=== PATIENT | female | born 1935 | race Two or more races ===

== ENCOUNTER 2021-08-02 10:48 | Inpatient (IN) | payer OTHER ==
[~2021-08-02] VITALS: Ht 165.1 cm; Wt 72.8 kg
[2021-08-02] MEDS ORDERED: methylPREDNISolone SOD SUCC 125 MG/2 ML VL IV ONE (11:30)
[2021-08-02 12:44] LABS: Basophils # (auto) 0 10 ^3/uL (0-0.2); Basophils % (auto) 0.2 % (0.0-2.0); Eosinophils # (auto) 0 10 ^3/uL (0-0.8); Hematocrit 34.9 % (36.0-46.0); Hemoglobin 11.8 g/dL (12.2-16.2); Lymphocytes # (auto) 0.9 10 ^3/uL (0.4-5.4); Lymphocytes % (auto) 12.1 % (10.0-50.0); Mean Corpuscular Hemoglobin 33.3 pg (28.0-32.0); Mean Corpuscular Hgb Conc. 33.9 g/dL (32.0-36.0); Mean Corpuscular Volume 98.2 fL (80.0-100.0); Monocytes # (auto) 0.2 10 ^3/uL (0-1.3); Monocytes % (auto) 2.7 % (0.0-12.0); Neutrophils # (auto) 6.1 10 ^3/uL (1.6-8.6); Red Blood Cells 3.55 10^6/uL (4.0-5.20); Red Cell Distribution Width 15.8 % (11.8-14.3); White Blood Cell 7.1 10^3/uL (4.4-10.8)
[2021-08-02 12:52] LABS: Albumin 2.6 g/dL (3.4-5.0); Calcium 8.2 mg/dL (8.5-10.1); Potassium 3.4 mmol/L (3.5-5.1)
[2021-08-02 13:01] LABS: BUN/Creatinine Ratio 22.4; Bilirubin, Total 0.5 mg/dL (0.2-1.0); CRP High Sensitivity 18.6 mg/dL (< 0.3); Magnesium 2.3 mg/dL (1.6-2.6)
[2021-08-02] MEDS ORDERED: NITROGLYCERIN 0.4 MG SL TAB SL PRN (13:45)
[2021-08-02] MEDS ORDERED: MORPHINE SULFATE INJECTION 2 MG/ML SYRG IV PRN (13:45)
[2021-08-02] MEDS ORDERED: ASPI-498 PO (16:38)
[2021-08-02] MEDS ORDERED: CALC600T65 PO (16:38)
[2021-08-02] MEDS ORDERED: LEVAAER IN (16:38)
[2021-08-02] MEDS ORDERED: OMEG100078 PO (16:38)
[2021-08-02] MEDS ORDERED: METO-289 PO (16:38)
[2021-08-02] MEDS ORDERED: GLIP-110 PO (16:38)
[2021-08-02] MEDS ORDERED: ALLO100T PO (16:38)
[2021-08-02] MEDS ORDERED: POTA10TA32 PO (16:38)
[2021-08-02] MEDS ORDERED: MIN25T PO (16:38)
[2021-08-02] MEDS ORDERED: PANT40TA2 PO (16:38)
[2021-08-02] MEDS ORDERED: FURO40TA4 PO (16:38)
[2021-08-02] MEDS ORDERED: INSU100I4 SC (16:38)
[2021-08-02] MEDS ORDERED: ISOS1TAB28 PO (16:38)
[2021-08-02] MEDS ORDERED: METO2.5T PO (16:38)
[2021-08-02] MEDS ORDERED: INSU1INJ5 SC (16:38)
[2021-08-02] MEDS ORDERED: ROSU20TA14 PO (16:38)
[2021-08-02] MEDS ORDERED: POLYDRO2 EACHEYE (16:40)
[2021-08-02 19:03] LABS: Urine Bacteria FEW /hpf (None Seen); Urine Blood TRACE /uL (Negative); Urine WBC 8 /hpf (0 - 5)
[2021-08-02] MEDS ORDERED: hydrALAZINE HCL 20 MG/ML VL IV PRN (19:15)
[2021-08-02] MEDS ORDERED: ALBUMIN 25% 100 ML IV ONE (19:15)
[2021-08-02] MEDS ORDERED: FAMOTIDINE (10MG/ML) 2ML VL IV ONE (19:15)
[2021-08-02] MEDS ORDERED: REMDESIVIR PER PHARMACY 0 ML IV SCH (19:15)
[2021-08-02] MEDS ORDERED: DEXTROSE (50%) 50ML SYRG IV PRN (19:15)
[2021-08-02] MEDS ORDERED: POTASSIUM CHL 20 Meq TABLET PO ONE (19:15)
[2021-08-02] MEDS ORDERED: ACETAMINOPHEN 500 MG TAB PO PRN (19:15)
[2021-08-02] MEDS ORDERED: CALCIUM W/VIT D (600MG/400IU) TAB PO ONE (19:30)
[2021-08-02] MEDS: ZINC SULFATE 220mg CAP or TAB PO SCH (19:59)
[2021-08-02] MEDS: ASCORBIC ACID 1,000 MG TAB PO SCH (19:59)
[2021-08-02] MEDS: CHOLECALCIFEROL (VITD3) 2,000 UNIT CAP/TAB PO SCH (19:59)
[2021-08-02] MEDS: FUROSEMIDE 20 MG/2 ML VIAL IV SCH (19:59)
[2021-08-02] MEDS ORDERED: REMDESIVIR 200 MG in NS 210ml LOADING DOSE ADULT IV ONE (20:00)
[2021-08-02 20:33] LABS: Thyroid Stimulating Hormone 2.46 uIU/mL (0.358-3.74)
[2021-08-02] MEDS: BUDESONIDE (INHALATION) 180 MCG IH IN SCH (22:00)
[2021-08-02] MEDS: ALBUTEROL SULF HFA 90MCG INH 200DOSE IN PRN (23:05)
[2021-08-02] MEDS: ACCU-CHEK COMFORT CURVE STRIP VI SCH (23:28)
[2021-08-02] MEDS: ALBUMIN 25% 100 ML IV SCH (23:35)
[2021-08-02] MEDS: ATORVASTATIN 20 MG TAB PO SCH (23:36)
[2021-08-02] MEDS: POTASSIUM CHL 20 Meq TABLET PO SCH (23:36)
[2021-08-02] MEDS: ENOXAPARIN SOD 40 MG/0.4 ML SYRINGE SC SCH (23:36)
[2021-08-02] MEDS: DOXYCYCLINE 100MG/250ML 250 ML IV SCH (23:41)
[2021-08-03] MEDS: InsuLIN REG 1unit/0.01ml Soln (100units/ml) SC SCH ×5 (00:17→22:41)
[2021-08-03 01:13] VITALS: BP 121/86
[2021-08-03] MEDS: ALBUMIN 25% 100 ML IV SCH ×2 (03:22→12:21)
[2021-08-03] MEDS: FUROSEMIDE 20 MG/2 ML VIAL IV SCH ×2 (06:22→17:31)
[2021-08-03] MEDS: ACCU-CHEK COMFORT CURVE STRIP VI SCH ×4 (06:41→23:09)
[2021-08-03] MEDS: CALCIUM W/VIT D (600MG/400IU) TAB PO SCH ×2 (08:25→17:31)
[2021-08-03 09:11] LABS: Basophils # (auto) 0 10 ^3/uL (0-0.2); Basophils % (auto) 0.3 % (0.0-2.0); Eosinophils # (auto) 0 10 ^3/uL (0-0.8); Hematocrit 35.4 % (36.0-46.0); Hemoglobin 11.9 g/dL (12.2-16.2); Lymphocytes # (auto) 0.6 10 ^3/uL (0.4-5.4); Lymphocytes % (auto) 8.1 % (10.0-50.0); Mean Corpuscular Hemoglobin 33.1 pg (28.0-32.0); Mean Corpuscular Hgb Conc. 33.6 g/dL (32.0-36.0); Mean Corpuscular Volume 98.5 fL (80.0-100.0); Monocytes # (auto) 0.2 10 ^3/uL (0-1.3); Monocytes % (auto) 3.1 % (0.0-12.0); Neutrophils # (auto) 7.1 10 ^3/uL (1.6-8.6); Neutrophils % (auto) 88.5 % (37.0-80.0); Nucleated Red Blood Cells % 0.1 %; Red Blood Cells 3.59 10^6/uL (4.0-5.20); Red Cell Distribution Width 15.7 % (11.8-14.3)
[2021-08-03 09:29] LABS: Potassium 3.8 mmol/L (3.5-5.1)
[2021-08-03 09:37] LABS: INR 1.06 (0.9-1.15); Partial Thromboplastin Time 46.3 sec (23.6-33.0)
[2021-08-03 09:39] LABS: Albumin 3.2 g/dL (3.4-5.0); BUN/Creatinine Ratio 28.9; Bilirubin, Total 0.5 mg/dL (0.2-1.0); Calcium 8.9 mg/dL (8.5-10.1); Magnesium 2.8 mg/dL (1.6-2.6); Phosphorus 3.2 mg/dL (2.5-4.90); Total Protein 7.6 g/dL (6.4-8.2); Uric Acid 5.1 mg/dL (2.6-6.0)
[2021-08-03] MEDS: ISOSORBIDE MONONITRATE ER 60 MG TAB PO SCH (10:00)
[2021-08-03] MEDS: BUDESONIDE (INHALATION) 180 MCG IH IN SCH ×2 (10:47→21:00)
[2021-08-03] MEDS: ALBUTEROL SULF HFA 90MCG INH 200DOSE IN PRN ×2 (10:47→21:00)
[2021-08-03] MEDS: DexAMETHasone SOD PHOS 10MG/1ML VIAL INJ IV SCH (10:50)
[2021-08-03] MEDS: DOXYCYCLINE 100MG/250ML 250 ML IV SCH ×2 (10:50→23:09)
[2021-08-03] MEDS: FAMOTIDINE (10MG/ML) 2ML VL IV SCH (10:50)
[2021-08-03] MEDS: ASPirin 81 mg TAB PO SCH (10:51)
[2021-08-03] MEDS: ZINC SULFATE 220mg CAP or TAB PO SCH (10:51)
[2021-08-03] MEDS: POTASSIUM CHL 20 Meq TABLET PO SCH ×2 (10:52→23:09)
[2021-08-03] MEDS: ASCORBIC ACID 1,000 MG TAB PO SCH (10:53)
[2021-08-03] MEDS: CHOLECALCIFEROL (VITD3) 2,000 UNIT CAP/TAB PO SCH (10:53)
[2021-08-03] MEDS: IVERMECTIN 3 MG TAB PO SCH (10:53)
[2021-08-03] MEDS: ENOXAPARIN SOD 40 MG/0.4 ML SYRINGE SC SCH (10:54)
[2021-08-03] MEDS: ALLOPURINOL 100 MG TAB PO SCH (10:54)
[2021-08-03] MEDS ORDERED: cefTRIAXone 1GM/50ML D5W 50 ML IV ONE (13:00)
[2021-08-03] MEDS: REMDESIVIR 100mg 100 MG in SODIUM CHL 0.9% 230 ML IV SCH (15:11)
[2021-08-03 20:20] VITALS: BP 127/65
[2021-08-03 22:00] VITALS: BP 127/65
[2021-08-03] MEDS: ATORVASTATIN 20 MG TAB PO SCH (23:08)
[2021-08-04 05:30] VITALS: BP 131/70
[2021-08-04] MEDS: ACCU-CHEK COMFORT CURVE STRIP VI SCH ×4 (06:33→21:51)
[2021-08-04] MEDS: FUROSEMIDE 20 MG/2 ML VIAL IV SCH ×2 (06:33→17:46)
[2021-08-04] MEDS: InsuLIN REG 1unit/0.01ml Soln (100units/ml) SC SCH ×4 (06:34→21:44)
[2021-08-04 07:39] LABS: Potassium 4.2 mmol/L (3.5-5.1)
[2021-08-04 07:54] LABS: Albumin 3.2 g/dL (3.4-5.0); BUN/Creatinine Ratio 37.7; Bilirubin, Total 0.4 mg/dL (0.2-1.0); Calcium 8.7 mg/dL (8.5-10.1); Total Protein 6.5 g/dL (6.4-8.2)
[2021-08-04 08:00] VITALS: BP 139/63
[2021-08-04] MEDS: BUDESONIDE (INHALATION) 180 MCG IH IN SCH ×2 (08:06→22:10)
[2021-08-04] MEDS: ALBUTEROL SULF HFA 90MCG INH 200DOSE IN PRN ×2 (08:06→22:10)
[2021-08-04 09:00] VITALS: BP 139/63
[2021-08-04] MEDS: CALCIUM W/VIT D (600MG/400IU) TAB PO SCH ×2 (09:44→17:46)
[2021-08-04] MEDS: cefTRIAXone 1GM/50ML D5W 50 ML IV SCH (09:45)
[2021-08-04] MEDS: DexAMETHasone SOD PHOS 10MG/1ML VIAL INJ IV SCH (09:45)
[2021-08-04] MEDS: ZINC SULFATE 220mg CAP or TAB PO SCH (09:45)
[2021-08-04] MEDS: ASPirin 81 mg TAB PO SCH (09:45)
[2021-08-04] MEDS: FAMOTIDINE (10MG/ML) 2ML VL IV SCH (09:45)
[2021-08-04] MEDS: POTASSIUM CHL 20 Meq TABLET PO SCH ×2 (09:46→21:52)
[2021-08-04] MEDS: ISOSORBIDE MONONITRATE ER 60 MG TAB PO SCH (09:46)
[2021-08-04] MEDS: CHOLECALCIFEROL (VITD3) 2,000 UNIT CAP/TAB PO SCH (09:47)
[2021-08-04] MEDS: ALLOPURINOL 100 MG TAB PO SCH (09:47)
[2021-08-04] MEDS: IVERMECTIN 3 MG TAB PO SCH (09:47)
[2021-08-04] MEDS ORDERED: ENOXAPARIN SOD 40 MG/0.4 ML SYRINGE SC SCH (10:00)
[2021-08-04] MEDS: DOXYCYCLINE 100MG/250ML 250 ML IV SCH ×2 (11:37→21:52)
[2021-08-04] MEDS ORDERED: POTASSIUM CHL 20MEQ/100ML 0 ML IV ONE (12:34)
[2021-08-04 13:00] VITALS: BP 135/72
[2021-08-04] MEDS: REMDESIVIR 100mg 100 MG in SODIUM CHL 0.9% 230 ML IV SCH (15:17)
[2021-08-04 17:00] VITALS: BP 121/65
[2021-08-04] MEDS: ENOXAPARIN SOD 40 MG/0.4 ML SYRINGE SC SCH (21:51)
[2021-08-04] MEDS: ATORVASTATIN 20 MG TAB PO SCH (21:52)
[2021-08-04 22:00] VITALS: BP 128/70
[2021-08-05] VITALS (7 sets, daily range): BP systolic 124–160; BP diastolic 49–75
[2021-08-05] MEDS: FUROSEMIDE 20 MG/2 ML VIAL IV SCH ×2 (06:13→17:43)
[2021-08-05] MEDS: ACCU-CHEK COMFORT CURVE STRIP VI SCH ×4 (06:13→21:35)
[2021-08-05] MEDS: InsuLIN REG 1unit/0.01ml Soln (100units/ml) SC SCH ×4 (06:20→21:31)
[2021-08-05 06:53] LABS: Albumin 2.8 g/dL (3.4-5.0); Calcium 8.9 mg/dL (8.5-10.1); Potassium 4.5 mmol/L (3.5-5.1)
[2021-08-05 06:55] LABS: BUN/Creatinine Ratio 38.9
[2021-08-05 06:58] LABS: Bilirubin, Total 0.3 mg/dL (0.2-1.0); Total Protein 5.9 g/dL (6.4-8.2)
[2021-08-05] MEDS: ALBUTEROL SULF HFA 90MCG INH 200DOSE IN PRN ×2 (07:13→21:47)
[2021-08-05] MEDS: BUDESONIDE (INHALATION) 180 MCG IH IN SCH ×2 (07:13→21:47)
[2021-08-05] MEDS: cefTRIAXone 1GM/50ML D5W 50 ML IV SCH (08:40)
[2021-08-05] MEDS: CALCIUM W/VIT D (600MG/400IU) TAB PO SCH ×2 (08:40→17:44)
[2021-08-05] MEDS: DexAMETHasone SOD PHOS 10MG/1ML VIAL INJ IV SCH (08:51)
[2021-08-05] MEDS: POTASSIUM CHL 20 Meq TABLET PO SCH ×2 (08:52→21:35)
[2021-08-05] MEDS: ASPirin 81 mg TAB PO SCH (08:52)
[2021-08-05] MEDS: FAMOTIDINE (10MG/ML) 2ML VL IV SCH (08:52)
[2021-08-05] MEDS: ENOXAPARIN SOD 40 MG/0.4 ML SYRINGE SC SCH ×2 (08:53→21:35)
[2021-08-05] MEDS: ALLOPURINOL 100 MG TAB PO SCH (08:53)
[2021-08-05] MEDS: CHOLECALCIFEROL (VITD3) 2,000 UNIT CAP/TAB PO SCH (08:53)
[2021-08-05] MEDS: DOXYCYCLINE 100MG/250ML 250 ML IV SCH (09:42)
[2021-08-05] MEDS: ISOSORBIDE MONONITRATE ER 60 MG TAB PO SCH (09:42)
[2021-08-05] MEDS ORDERED: amLODIPine BESYLATE 5 MG TAB PO ONE (12:45)
[2021-08-05] MEDS: REMDESIVIR 100mg 100 MG in SODIUM CHL 0.9% 230 ML IV SCH (15:51)
[2021-08-05] MEDS: PROMETHAZINE W/CODEINE 5 ML ORAL SYRUP PO PRN (16:15)
[2021-08-05] MEDS: INSULIN LANTUS (GLARGINE) 1 /0.01ml (100units/ml) SC SCH (21:33)
[2021-08-05] MEDS: ATORVASTATIN 20 MG TAB PO SCH (21:35)
[2021-08-05] MEDS: DOXYCYCLINE 100 MG TAB/CAP PO SCH (21:35)
[2021-08-06] MEDS: PROMETHAZINE W/CODEINE 5 ML ORAL SYRUP PO PRN ×4 (02:03→23:28)
[2021-08-06 05:00] VITALS: BP_SYST 154; BP_SYST 161; BP_DIAS 78; BP_DIAS 80
[2021-08-06] MEDS: ACCU-CHEK COMFORT CURVE STRIP VI SCH ×4 (06:14→22:23)
[2021-08-06] MEDS: FUROSEMIDE 20 MG/2 ML VIAL IV SCH ×2 (06:14→17:07)
[2021-08-06] MEDS: InsuLIN REG 1unit/0.01ml Soln (100units/ml) SC SCH ×4 (06:20→22:25)
[2021-08-06 07:02] LABS: Basophils # (auto) 0 10 ^3/uL (0-0.2); Basophils % (auto) 0.4 % (0.0-2.0); Eosinophils # (auto) 0 10 ^3/uL (0-0.8); Hematocrit 35.6 % (36.0-46.0); Hemoglobin 12.5 g/dL (12.2-16.2); Lymphocytes # (auto) 0.9 10 ^3/uL (0.4-5.4); Lymphocytes % (auto) 19.2 % (10.0-50.0); Mean Corpuscular Hemoglobin 34.2 pg (28.0-32.0); Mean Corpuscular Volume 97.7 fL (80.0-100.0); Monocytes # (auto) 0.4 10 ^3/uL (0-1.3); Monocytes % (auto) 8.9 % (0.0-12.0); Neutrophils # (auto) 3.5 10 ^3/uL (1.6-8.6); Neutrophils % (auto) 71.5 % (37.0-80.0); Nucleated Red Blood Cells % 0.1 %; Red Blood Cells 3.64 10^6/uL (4.0-5.20); Red Cell Distribution Width 15.4 % (11.8-14.3); White Blood Cell 4.9 10^3/uL (4.4-10.8)
[2021-08-06 07:20] LABS: Calcium 9.2 mg/dL (8.5-10.1); Potassium 4.6 mmol/L (3.5-5.1)
[2021-08-06 07:27] LABS: BUN/Creatinine Ratio 41.5; Bilirubin, Total 0.4 mg/dL (0.2-1.0); Total Protein 6.4 g/dL (6.4-8.2)
[2021-08-06] MEDS: BUDESONIDE (INHALATION) 180 MCG IH IN SCH ×2 (07:51→19:55)
[2021-08-06] MEDS: ALBUTEROL SULF HFA 90MCG INH 200DOSE IN PRN ×2 (07:51→19:56)
[2021-08-06 09:00] VITALS: BP 140/69
[2021-08-06] MEDS: cefTRIAXone 1GM/50ML D5W 50 ML IV SCH (10:48)
[2021-08-06] MEDS: ENOXAPARIN SOD 40 MG/0.4 ML SYRINGE SC SCH ×2 (10:48→22:23)
[2021-08-06] MEDS: POTASSIUM CHL 20 Meq TABLET PO SCH ×2 (10:49→22:25)
[2021-08-06] MEDS: ALLOPURINOL 100 MG TAB PO SCH (10:49)
[2021-08-06] MEDS: ASPirin 81 mg TAB PO SCH (10:49)
[2021-08-06] MEDS: CHOLECALCIFEROL (VITD3) 2,000 UNIT CAP/TAB PO SCH (10:50)
[2021-08-06] MEDS: ISOSORBIDE MONONITRATE ER 60 MG TAB PO SCH (10:50)
[2021-08-06] MEDS: DOXYCYCLINE 100 MG TAB/CAP PO SCH ×2 (10:50→22:25)
[2021-08-06] MEDS: amLODIPine BESYLATE 5 MG TAB PO SCH (10:51)
[2021-08-06] MEDS: FAMOTIDINE (10MG/ML) 2ML VL IV SCH (10:52)
[2021-08-06] MEDS: DexAMETHasone SOD PHOS 10MG/1ML VIAL INJ IV SCH (10:53)
[2021-08-06] MEDS: CALCIUM W/VIT D (600MG/400IU) TAB PO SCH ×2 (11:07→17:07)
[2021-08-06 13:00] VITALS: BP 122/65
[2021-08-06] MEDS: REMDESIVIR 100mg 100 MG in SODIUM CHL 0.9% 230 ML IV SCH (15:08)
[2021-08-06 17:00] VITALS: BP 127/70
[2021-08-06 22:00] VITALS: BP 123/67
[2021-08-06] MEDS: INSULIN LANTUS (GLARGINE) 1 /0.01ml (100units/ml) SC SCH (22:24)
[2021-08-06] MEDS: ATORVASTATIN 20 MG TAB PO SCH (22:25)
[2021-08-07 05:00] VITALS: BP 152/73
[2021-08-07] MEDS: FUROSEMIDE 20 MG/2 ML VIAL IV SCH ×2 (05:48→17:35)
[2021-08-07] MEDS: ACCU-CHEK COMFORT CURVE STRIP VI SCH ×4 (06:13→21:28)
[2021-08-07] MEDS: InsuLIN REG 1unit/0.01ml Soln (100units/ml) SC SCH ×4 (06:14→21:38)
[2021-08-07] MEDS: ALBUTEROL SULF HFA 90MCG INH 200DOSE IN PRN (08:03)
[2021-08-07] MEDS: BUDESONIDE (INHALATION) 180 MCG IH IN SCH ×2 (08:04→21:27)
[2021-08-07] MEDS: CALCIUM W/VIT D (600MG/400IU) TAB PO SCH ×2 (08:30→17:35)
[2021-08-07] MEDS: cefTRIAXone 1GM/50ML D5W 50 ML IV SCH (08:30)
[2021-08-07 09:00] VITALS: BP 141/71
[2021-08-07] MEDS: FAMOTIDINE (10MG/ML) 2ML VL IV SCH (09:35)
[2021-08-07] MEDS: DexAMETHasone SOD PHOS 10MG/1ML VIAL INJ IV SCH (09:35)
[2021-08-07] MEDS: amLODIPine BESYLATE 5 MG TAB PO SCH (09:36)
[2021-08-07] MEDS: POTASSIUM CHL 20 Meq TABLET PO SCH ×2 (09:36→21:27)
[2021-08-07] MEDS: ENOXAPARIN SOD 40 MG/0.4 ML SYRINGE SC SCH ×2 (09:36→21:28)
[2021-08-07] MEDS: ASPirin 81 mg TAB PO SCH (09:37)
[2021-08-07] MEDS: DOXYCYCLINE 100 MG TAB/CAP PO SCH ×2 (09:37→21:27)
[2021-08-07] MEDS: CHOLECALCIFEROL (VITD3) 2,000 UNIT CAP/TAB PO SCH (09:37)
[2021-08-07] MEDS: ALLOPURINOL 100 MG TAB PO SCH (09:37)
[2021-08-07] MEDS: ISOSORBIDE MONONITRATE ER 60 MG TAB PO SCH (09:37)
[2021-08-07 13:00] VITALS: BP 131/70
[2021-08-07] MEDS: PROMETHAZINE W/CODEINE 5 ML ORAL SYRUP PO PRN (15:52)
[2021-08-07 17:00] VITALS: BP 121/62
[2021-08-07] MEDS: ATORVASTATIN 20 MG TAB PO SCH (21:27)
[2021-08-07] MEDS: INSULIN LANTUS (GLARGINE) 1 /0.01ml (100units/ml) SC SCH (21:30)
[2021-08-07 21:58] VITALS: BP 112/60
[2021-08-08 05:01] VITALS: BP 126/72
[2021-08-08] MEDS: ALBUTEROL SULF HFA 90MCG INH 200DOSE IN PRN ×2 (05:56→20:09)
[2021-08-08] MEDS: BUDESONIDE (INHALATION) 180 MCG IH IN SCH ×2 (05:56→20:09)
[2021-08-08] MEDS: ACCU-CHEK COMFORT CURVE STRIP VI SCH ×4 (07:37→21:00)
[2021-08-08] MEDS: FUROSEMIDE 20 MG/2 ML VIAL IV SCH (07:37)
[2021-08-08] MEDS: InsuLIN REG 1unit/0.01ml Soln (100units/ml) SC SCH ×4 (07:43→21:08)
[2021-08-08 08:00] VITALS: BP_SYST 114; BP_SYST 131; BP_DIAS 71; BP_DIAS 72
[2021-08-08] MEDS: ENOXAPARIN SOD 40 MG/0.4 ML SYRINGE SC SCH ×2 (09:48→20:59)
[2021-08-08] MEDS: FAMOTIDINE (10MG/ML) 2ML VL IV SCH (09:48)
[2021-08-08] MEDS: cefTRIAXone 1GM/50ML D5W 50 ML IV SCH (09:48)
[2021-08-08] MEDS: DexAMETHasone SOD PHOS 10MG/1ML VIAL INJ IV SCH (09:48)
[2021-08-08] MEDS: amLODIPine BESYLATE 5 MG TAB PO SCH (09:49)
[2021-08-08] MEDS: ASPirin 81 mg TAB PO SCH (09:49)
[2021-08-08] MEDS: ISOSORBIDE MONONITRATE ER 60 MG TAB PO SCH (09:49)
[2021-08-08] MEDS: DOXYCYCLINE 100 MG TAB/CAP PO SCH ×2 (09:49→20:59)
[2021-08-08] MEDS: POTASSIUM CHL 20 Meq TABLET PO SCH (09:49)
[2021-08-08] MEDS: CHOLECALCIFEROL (VITD3) 2,000 UNIT CAP/TAB PO SCH (09:49)
[2021-08-08] MEDS: ALLOPURINOL 100 MG TAB PO SCH (09:49)
[2021-08-08] MEDS: CALCIUM W/VIT D (600MG/400IU) TAB PO SCH ×2 (10:50→17:35)
[2021-08-08 12:12] VITALS: BP 115/51
[2021-08-08 17:05] VITALS: BP 123/67
[2021-08-08] MEDS: ATORVASTATIN 20 MG TAB PO SCH (20:59)
[2021-08-08] MEDS: INSULIN LANTUS (GLARGINE) 1 /0.01ml (100units/ml) SC SCH (21:04)
[2021-08-08 22:00] VITALS: BP 122/59
[2021-08-09 02:11] VITALS: BP 123/67
[2021-08-09 05:00] VITALS: BP 140/66
[2021-08-09] MEDS: BUDESONIDE (INHALATION) 180 MCG IH IN SCH ×2 (06:57→22:18)
[2021-08-09] MEDS: ALBUTEROL SULF HFA 90MCG INH 200DOSE IN PRN ×2 (06:57→22:18)
[2021-08-09] MEDS: ACCU-CHEK COMFORT CURVE STRIP VI SCH ×4 (07:15→22:22)
[2021-08-09] MEDS: InsuLIN REG 1unit/0.01ml Soln (100units/ml) SC SCH ×4 (07:17→22:25)
[2021-08-09 07:59] LABS: Basophils # (auto) 0 10 ^3/uL (0-0.2); Basophils % (auto) 0.1 % (0.0-2.0); Eosinophils # (auto) 0 10 ^3/uL (0-0.8); Hematocrit 38.5 % (36.0-46.0); Hemoglobin 12.8 g/dL (12.2-16.2); Lymphocytes # (auto) 1.1 10 ^3/uL (0.4-5.4); Lymphocytes % (auto) 19.5 % (10.0-50.0); Mean Corpuscular Hemoglobin 33.5 pg (28.0-32.0); Mean Corpuscular Hgb Conc. 33.4 g/dL (32.0-36.0); Mean Corpuscular Volume 100.2 fL (80.0-100.0); Monocytes # (auto) 0.4 10 ^3/uL (0-1.3); Monocytes % (auto) 7.7 % (0.0-12.0); Neutrophils # (auto) 4.1 10 ^3/uL (1.6-8.6); Neutrophils % (auto) 72.7 % (37.0-80.0); Red Blood Cells 3.84 10^6/uL (4.0-5.20); Red Cell Distribution Width 15.8 % (11.8-14.3); White Blood Cell 5.6 10^3/uL (4.4-10.8)
[2021-08-09 08:11] LABS: Calcium 9.7 mg/dL (8.5-10.1); Potassium 4.2 mmol/L (3.5-5.1)
[2021-08-09 08:17] LABS: BUN/Creatinine Ratio 40.5; Bilirubin, Total 0.4 mg/dL (0.2-1.0); Total Protein 6.4 g/dL (6.4-8.2)
[2021-08-09 09:00] VITALS: BP 131/65
[2021-08-09] MEDS: cefTRIAXone 1GM/50ML D5W 50 ML IV SCH (09:02)
[2021-08-09] MEDS: CALCIUM W/VIT D (600MG/400IU) TAB PO SCH ×2 (09:03→18:14)
[2021-08-09] MEDS: CHOLECALCIFEROL (VITD3) 2,000 UNIT CAP/TAB PO SCH (09:04)
[2021-08-09] MEDS: FAMOTIDINE 20 MG TAB PO SCH (09:05)
[2021-08-09] MEDS: ISOSORBIDE MONONITRATE ER 60 MG TAB PO SCH (09:05)
[2021-08-09] MEDS: ASPirin 81 mg TAB PO SCH (09:06)
[2021-08-09] MEDS: ALLOPURINOL 100 MG TAB PO SCH (09:06)
[2021-08-09] MEDS: ENOXAPARIN SOD 40 MG/0.4 ML SYRINGE SC SCH (09:06)
[2021-08-09] MEDS: DexAMETHasone SOD PHOS 10MG/1ML VIAL INJ IV SCH (09:06)
[2021-08-09] MEDS: DOXYCYCLINE 100 MG TAB/CAP PO SCH ×2 (09:06→22:22)
[2021-08-09] MEDS ORDERED: FUROSEMIDE 20 MG/2 ML VIAL IV SCH (10:00)
[2021-08-09] MEDS ORDERED: SALINE 0.65 % NASAL SPRAY 45ML BOTTLE EACHNOSTRI ONE (11:45)
[2021-08-09] MEDS: SALINE 0.65 % NASAL SPRAY 45ML BOTTLE EACHNOSTRI SCH ×3 (12:00→22:21)
[2021-08-09 13:00] VITALS: BP 110/62
[2021-08-09 17:00] VITALS: BP 126/70
[2021-08-09 22:00] VITALS: BP 131/60
[2021-08-09] MEDS: ATORVASTATIN 20 MG TAB PO SCH (22:22)
[2021-08-09] MEDS: INSULIN LANTUS (GLARGINE) 1 /0.01ml (100units/ml) SC SCH (22:26)
[2021-08-10 05:00] VITALS: BP 142/69
[2021-08-10] MEDS: BUDESONIDE (INHALATION) 180 MCG IH IN SCH ×2 (06:03→20:36)
[2021-08-10] MEDS: ALBUTEROL SULF HFA 90MCG INH 200DOSE IN PRN ×2 (06:03→20:36)
[2021-08-10] MEDS: SALINE 0.65 % NASAL SPRAY 45ML BOTTLE EACHNOSTRI SCH ×4 (06:30→21:40)
[2021-08-10] MEDS: InsuLIN REG 1unit/0.01ml Soln (100units/ml) SC SCH ×4 (07:00→21:29)
[2021-08-10] MEDS: ACCU-CHEK COMFORT CURVE STRIP VI SCH ×4 (07:00→21:36)
[2021-08-10 08:52] VITALS: BP 137/69
[2021-08-10] MEDS: CALCIUM W/VIT D (600MG/400IU) TAB PO SCH ×2 (09:35→18:50)
[2021-08-10] MEDS: DexAMETHasone SOD PHOS 10MG/1ML VIAL INJ IV SCH (09:35)
[2021-08-10] MEDS: DOXYCYCLINE 100 MG TAB/CAP PO SCH ×2 (09:35→21:36)
[2021-08-10] MEDS: ALLOPURINOL 100 MG TAB PO SCH (09:36)
[2021-08-10] MEDS: ENOXAPARIN SOD 40 MG/0.4 ML SYRINGE SC SCH (09:36)
[2021-08-10] MEDS: CHOLECALCIFEROL (VITD3) 2,000 UNIT CAP/TAB PO SCH (09:36)
[2021-08-10] MEDS: FUROSEMIDE 20 MG TAB PO SCH (09:36)
[2021-08-10] MEDS: ISOSORBIDE MONONITRATE ER 60 MG TAB PO SCH (09:37)
[2021-08-10] MEDS: FAMOTIDINE 20 MG TAB PO SCH (09:37)
[2021-08-10] MEDS: ASPirin 81 mg TAB PO SCH (09:37)
[2021-08-10] MEDS: cefTRIAXone 1GM/50ML D5W 50 ML IV SCH (09:37)
[2021-08-10 13:00] VITALS: BP 124/68
[2021-08-10 17:00] VITALS: BP 116/67
[2021-08-10] MEDS: INSULIN LANTUS (GLARGINE) 1 /0.01ml (100units/ml) SC SCH (21:36)
[2021-08-10] MEDS: ATORVASTATIN 20 MG TAB PO SCH (21:40)
[2021-08-10 22:00] VITALS: BP 121/67
[2021-08-11 05:00] VITALS: BP 150/78
[2021-08-11] MEDS: SALINE 0.65 % NASAL SPRAY 45ML BOTTLE EACHNOSTRI SCH ×3 (05:10→18:00)
[2021-08-11] MEDS: ACCU-CHEK COMFORT CURVE STRIP VI SCH ×3 (05:10→18:00)
[2021-08-11] MEDS: InsuLIN REG 1unit/0.01ml Soln (100units/ml) SC SCH ×3 (05:11→18:00)
[2021-08-11] MEDS: BUDESONIDE (INHALATION) 180 MCG IH IN SCH (06:00)
[2021-08-11] MEDS: ALBUTEROL SULF HFA 90MCG INH 200DOSE IN PRN (06:00)
[2021-08-11 09:00] VITALS: BP 120/56
[2021-08-11] MEDS ORDERED: DexAMETHasone SOD PHOS 10MG/1ML VIAL INJ IV SCH (10:00)
[2021-08-11] MEDS: CALCIUM W/VIT D (600MG/400IU) TAB PO SCH ×2 (10:18→18:00)
[2021-08-11] MEDS: ASPirin 81 mg TAB PO SCH (10:19)
[2021-08-11] MEDS: cefTRIAXone 1GM/50ML D5W 50 ML IV SCH (10:19)
[2021-08-11] MEDS: CHOLECALCIFEROL (VITD3) 2,000 UNIT CAP/TAB PO SCH (10:20)
[2021-08-11] MEDS: FAMOTIDINE 20 MG TAB PO SCH (10:20)
[2021-08-11] MEDS: FUROSEMIDE 20 MG TAB PO SCH (10:20)
[2021-08-11] MEDS: ISOSORBIDE MONONITRATE ER 60 MG TAB PO SCH (10:20)
[2021-08-11] MEDS: DOXYCYCLINE 100 MG TAB/CAP PO SCH (10:20)
[2021-08-11] MEDS: ENOXAPARIN SOD 40 MG/0.4 ML SYRINGE SC SCH (10:21)
[2021-08-11] MEDS: ALLOPURINOL 100 MG TAB PO SCH (10:21)
[2021-08-11 13:00] VITALS: BP 110/66
[2021-08-11 16:37] VITALS: BP 110/66
[2021-08-11 17:00] VITALS: BP 157/82
== END 2021-08-11 18:33 | disposition home health service (06) | DRG 871 ==
LOC: ER 10:48 → TELE 13:39 → TELE-EAST 08-03 20:15
PROVIDERS: ADMIT Hospitalist; ATTEND Internal Medicine
PROC: XW033E5 Introduction of Remdesivir Anti-infective into Peripheral Vein, Percutaneous Approach, New Technology Group 5 (ICD-10-PCS; principal; 2021-08-02)
DX: A41.89 Other specified sepsis (principal); U07.1 COVID-19; J12.82 Pneumonia due to coronavirus disease 2019; J96.01 Acute respiratory failure with hypoxia; N17.0 Acute kidney failure with tubular necrosis; I42.8 Other cardiomyopathies; I50.42 Chronic combined systolic (congestive) and diastolic (congestive) heart failure; I13.0 Hypertensive heart and chronic kidney disease with heart failure and stage 1 through stage 4 chronic kidney disease, or unspecified chronic kidney disease; R65.20 Severe sepsis without septic shock; D89.839 Cytokine release syndrome, grade unspecified; N18.32 Chronic kidney disease, stage 3b; E11.21 Type 2 diabetes mellitus with diabetic nephropathy; E11.40 Type 2 diabetes mellitus with diabetic neuropathy, unspecified; K21.9 Gastro-esophageal reflux disease without esophagitis; M81.0 Age-related osteoporosis without current pathological fracture; M10.9 Gout, unspecified; E11.22 Type 2 diabetes mellitus with diabetic chronic kidney disease; E78.5 Hyperlipidemia, unspecified; I25.10 Atherosclerotic heart disease of native coronary artery without angina pectoris; Z79.899 Other long term (current) drug therapy; Z86.73 Personal history of transient ischemic attack (TIA), and cerebral infarction without residual deficits; Z79.82 Long term (current) use of aspirin; Z95.1 Presence of aortocoronary bypass graft; M19.90 Unspecified osteoarthritis, unspecified site; Z86.718 Personal history of other venous thrombosis and embolism
CPT/HCPCS: 36415; 36600; 71045; 80053; 81001; 82306; 82607; 82728; 82805; 82962; 83036; 83605; 83615; 83735; 83880; 84100; 84443; 84484; 84550; 85025; 85379; 85610; 85730; 86141; 87040; 87426; 93005; 93970; 94640; 96374; 96375; 97116; 97163; 97530; G0378; J0696; J1100; J1815; J3480; J3490; P9047

== ENCOUNTER 2022-02-08 01:12 | Emergency (ER) | payer OTHER ==
[~2022-02-08] VITALS: Ht 167.6 cm; Wt 77.1 kg
[~2022-02-08 01:12] MED LIST: ALLO100T PO; ASPI-498 PO; CALC600T65 PO; FURO40TA4 PO; GLIP-110 PO; INSU100I4 SC; INSU1INJ5 SC; ISOS1TAB28 PO; LEVAAER IN; METO-289 PO; METO2.5T PO; MIN25T PO; OMEG100078 PO; PANT40TA2 PO; POLYDRO2 EACHEYE; POTA10TA32 PO; ROSU20TA14 PO
[2022-02-08 02:33] LABS: Basophils # (auto) 0 10 ^3/uL (0-0.2); Basophils % (auto) 0.4 % (0.0-2.0); Eosinophils # (auto) 0 10 ^3/uL (0-0.8); Eosinophils % (auto) 0.7 % (0.0-7.0); Hematocrit 37.9 % (36.0-46.0); Hemoglobin 12.8 g/dL (12.2-16.2); Lymphocytes # (auto) 1.8 10 ^3/uL (0.4-5.4); Lymphocytes % (auto) 29.9 % (10.0-50.0); Mean Corpuscular Hemoglobin 33.7 pg (28.0-32.0); Mean Corpuscular Hgb Conc. 33.8 g/dL (32.0-36.0); Mean Corpuscular Volume 99.6 fL (80.0-100.0); Monocytes # (auto) 0.3 10 ^3/uL (0-1.3); Monocytes % (auto) 5.2 % (0.0-12.0); Neutrophils # (auto) 3.8 10 ^3/uL (1.6-8.6); Neutrophils % (auto) 63.8 % (37.0-80.0); Nucleated Red Blood Cells % 0.1 %; Red Blood Cells 3.81 10^6/uL (4.0-5.20); Red Cell Distribution Width 16.3 % (11.8-14.3)
[2022-02-08 02:54] LABS: Albumin 3.7 g/dL (3.4-5.0); BUN/Creatinine Ratio 33.1; Calcium 9.3 mg/dL (8.5-10.1); Magnesium 2.1 mg/dL (1.6-2.6); Potassium 3.2 mmol/L (3.5-5.1)
[2022-02-08 02:56] LABS: Bilirubin, Total 0.4 mg/dL (0.2-1.0); Total Protein 6.8 g/dL (6.4-8.2)
[2022-02-08] MEDS ORDERED: DEXTROSE (50%) 50ML SYRG IV ONE (03:30)
[2022-02-08 10:40] LABS: Urine Bacteria FEW /hpf (None Seen); Urine Blood 1+ /uL (Negative); Urine Specific Gravity 1.012 (1.001-1.035); Urine WBC 20 /hpf (0 - 5)
[2022-02-08] MEDS ORDERED: CEFD300C2 PO (10:59)
[2022-02-08] MEDS ORDERED: POTASSIUM EFFERVESENT TAB 25 MEQ PO ONE (11:00)
[2022-02-08] MEDS ORDERED: cefTRIAXone 1GM/50ML D5W 50 ML IV ONE (11:00)
[2022-02-08 12:07] VITALS: BP 115/58
== END 2022-02-08 12:53 | disposition home or self-care (01) ==
LOC: ER 01:12 → EDBD 01:12 → EDUNIT# 01:12 → ER 12:53
DX: T38.3X1A Poisoning by insulin and oral hypoglycemic [antidiabetic] drugs, accidental (unintentional), initial encounter (principal); R07.89 Other chest pain; I11.0 Hypertensive heart disease with heart failure; I50.9 Heart failure, unspecified; I25.2 Old myocardial infarction; M19.90 Unspecified osteoarthritis, unspecified site; Z86.73 Personal history of transient ischemic attack (TIA), and cerebral infarction without residual deficits; Z79.4 Long term (current) use of insulin; Z95.1 Presence of aortocoronary bypass graft; Z79.899 Other long term (current) drug therapy; Y92.89 Other specified places as the place of occurrence of the external cause
CPT/HCPCS: 36415; 71045; 80053; 81001; 82962; 83735; 83880; 84484; 85025; 93005; 96365; 96375; 99285; J0696; J7042

== ENCOUNTER 2022-02-17 20:16 | Emergency (ER) | payer OTHER ==
[~2022-02-17] VITALS: Ht 162.6 cm; Wt 77.1 kg
[~2022-02-17 20:16] MED LIST changes: +CEFD300C2 PO
[2022-02-17] MEDS ORDERED: amLODIPine BESYLATE 5 MG TAB PO ONE (20:45)
[2022-02-17 21:15] VITALS: BP 130/75
== END 2022-02-17 21:27 | disposition home or self-care (01) ==
LOC: EDBD 20:16 → ER 20:16
DX: S01.81XA Laceration without foreign body of other part of head, initial encounter (principal); I11.0 Hypertensive heart disease with heart failure; I50.9 Heart failure, unspecified; I25.10 Atherosclerotic heart disease of native coronary artery without angina pectoris; I25.2 Old myocardial infarction; E11.9 Type 2 diabetes mellitus without complications; K21.9 Gastro-esophageal reflux disease without esophagitis; Z95.1 Presence of aortocoronary bypass graft; Z79.82 Long term (current) use of aspirin; Z79.4 Long term (current) use of insulin; Z79.899 Other long term (current) drug therapy; W01.198A Fall on same level from slipping, tripping and stumbling with subsequent striking against other object, initial encounter; Y93.89 Activity, other specified; Y92.89 Other specified places as the place of occurrence of the external cause; Y99.8 Other external cause status
CPT/HCPCS: 70450; 72125; 93005